=== PATIENT | male | born 1950 | race Caucasian/White ===

== ENCOUNTER 2017-10-07 12:29 | Emergency (ER) | payer BC, MEDICARE ==
[2017-10-07 12:53] VITALS: BP 148/73
--- NOTE | 2017-10-07 13:12 | EDM.PDOC ---
ED HPI GENERAL MEDICAL PROBLEM - General Chief Complaint: Neuro Symptoms/Deficits Stated Complaint: POSSIBLE STROKE Time Seen by Provider: 10/07/17 13:11 Source of Information: Reports: Patient, Family History Limitations: Reports: No Limitations - History of Present Illness INITIAL COMMENTS - FREE TEXT/NARRATIVE: pt was putting duck decoys up in the upper garge shelf. He had his head tipped way backward. He had both hands above his head. He developed a floppy hand marked weakness and he was not able to move the middle and ring finger of the hand. He did not have other symptoms. He had a stoke 1 year ago with speech symptoms only. Onset: Today, Other ( Pt was lifting an object above his head) Duration: Other ( The episode lasted 5 minutes. ) Location: Reports: Upper Extremity, Right Associated Symptoms: Reports: Other (pt developed marked weakness in the rt hand and was not able to move his ring and middle finger. ) - Related Data Allergies Allergy/AdvReac Type Severity Reaction Status Date / Time No Known Allergies Allergy Verified 04/17/16 11:46 Home Meds: Home Meds Fluticasone Propionate [Flovent HFA 220 MCG] 2 puff INH DAILY 04/17/16 [History] Clopidogrel Bisulfate [Clopidogrel] 1 tab PO DAILY 10/07/17 [History] Rosuvastatin Calcium [Rosuvastatin Calcium] 1 tab PO DAILY 10/07/17 [History] amLODIPine [Norvasc] 1 tab PO DAILY 10/07/17 [History] Past Medical History HEENT History: Reports: Impaired Vision Cardiovascular History: Reports: High Cholesterol, Hypertension Respiratory History: Reports: Asthma Gastrointestinal History: Reports: Irritable Bowel Syndrome Genitourinary History: Reports: None Musculoskeletal History: Reports: Fracture Neurological History: Reports: CVA Psychiatric History: Reports: Anxiety, Depression Endocrine/Metabolic History: Reports: None Hematologic History: Reports: None Immunologic History: Reports: None Oncologic (Cancer) History: Reports: None Dermatologic History: Reports: None - Past Surgical History Head Surgeries/Procedures: Reports: None Musculoskeletal Surgical History: Reports: Other (See Below) Social & Family History - Tobacco Use Smoking Status *Q: Never Smoker - Recreational Drug Use Recreational Drug Use: No ED ROS GENERAL - Review of Systems Review Of Systems: See Below Constitutional: Reports: No Symptoms HEENT: Reports: No Symptoms Respiratory: Reports: No Symptoms Cardiovascular: Reports: No Symptoms Endocrine: Reports: No Symptoms GI/Abdominal: Reports: No Symptoms : Reports: No Symptoms Skin: Reports: Other ( weakness in the rt hand. This developed when he was reaching overhead with a heavy object in his hands. ) ED EXAM, NEURO - Physical Exam Exam: See Below Text/Narrative:: pt developed a sudden episode of weakness in the rt hand rogelio he was putting duck decoys up on a high shelf. Exam Limited By: No Limitations General Appearance: Alert, Anxious, Other (pupils equal and reactive. ) Ears: Normal TMs Nose: Normal Inspection Throat/Mouth: Normal Inspection Head Exam: Atraumatic Neck: Normal Inspection, Other ( no evidence of carotid bruit) Respiratory/Chest: No Respiratory Distress Cardiovascular: Regular Rate, Rhythm GI/Abdominal: Soft, Non-Tender (Male) Exam: Deferred Rectal (Males) Exam: Deferred Neurological: Alert, Other ( no neuro symptoms. ) Back Exam: Normal Inspection Extremities: Other ( normal strength bilateral. ) Psychiatric: Normal Affect Course - Vital Signs Last Recorded V/S: Last Vital Signs Temp 36.7 C 10/07/17 12:51 Pulse 64 10/07/17 12:51 Resp 14 10/07/17 12:51 BP 148/73 H 10/07/17 12:51 Pulse Ox 96 10/07/17 12:51 - Orders/Labs/Meds Orders: Active Orders 24 hr Category Date Time Status EKG Documentation Completion [RC] ASDIRECTED Care 10/07/17 13:11 Active Ang Head [CT] Stat Exams 10/07/17 14:19 Taken Iopamidol [Isovue-370 (76%)] Med 10/07/17 14:30 Active 100 ml IV . DIRECTED Sodium Chloride 0.9% [Normal Saline] 100 ml Med 10/07/17 14:30 Active IV ASDIRECTED Sodium Chloride 0.9% [Saline Flush] Med 10/07/17 14:30 Active 10 ml FLUSH ASDIRECTED PRN EKG 12 Lead [EK] Routine Ther 10/07/17 13:11 Ordered Medication Orders Sodium Chloride (Normal Saline) 100 mls @ 4 mls/sec IV ASDIRECTED DESI Last Admin: 10/07/17 14:57 Dose: 4 mls/sec Iopamidol (Isovue-370 (76%)) 100 ml IV . DIRECTED DESI Last Admin: 10/07/17 14:57 Dose: 100 ml Sodium Chloride (Saline Flush) 10 ml FLUSH ASDIRECTED PRN PRN Reason: Keep Vein Open Last Admin: 10/07/17 14:57 Dose: 10 ml Labs: Laboratory Tests 10/07/17 10/07/17 Range/Units 13:11 13:11 WBC 7.8 (4.5-11.0) K/uL RBC 5.14 (4.30-5.90) M/uL Hgb 15.7 H (12.0-15.0) g/dL Hct 44.1 (40.0-54.0) % MCV 86 (80-98) fL MCH 31 (27-31) pg MCHC 36 (32-36) % Plt Count 274 (150-400) K/uL Neut % (Auto) 58 (36-66) % Lymph % (Auto) 27 (24-44) % Bee % (Auto) 11 H (2-6) % Eos % (Auto) 3 (2-4) % Baso % (Auto) 1 (0-1) % Sodium 141 (140-148) mmol/L Potassium 4.0 (3.6-5.2) mmol/L Chloride 105 (100-108) mmol/L Carbon Dioxide 29 (21-32) mmol/L Anion Gap 6.6 (5.0-14.0) mmol/L BUN 14 (7-18) mg/dL Creatinine 0.9 (0.8-1.3) mg/dL Est Cr Clr Drug Dosing 63.19 mL/min Estimated GFR (MDRD) > 60 (>60) Glucose 93 (74-106) mg/dL Calcium 9.0 (8.5-10.1) mg/dL Total Bilirubin 0.4 (0.2-1.0) mg/dL AST 28 (15-37) U/L ALT 45 (12-78) U/L Alkaline Phosphatase 64 (46-116) U/L Total Protein 6.8 (6.4-8.2) g/dL Albumin 3.8 (3.4-5.0) g/dL Globulin 3.0 (2.3-3.5) g/dL Albumin/Globulin Ratio 1.3 (1.2-2.2) Meds: Medications Generic Name Dose Route Start Last Admin Trade Name Deweyq PRN Reason Stop Dose Admin Sodium Chloride 100 mls @ 4 mls/sec 10/07/17 14:30 10/07/17 14:57 Normal Saline IV 4 mls/sec ASDIRECTED DESI Administration Iopamidol 100 ml 10/07/17 14:30 10/07/17 14:57 Isovue-370 (76%) IV 100 ml . DIRECTED DESI Administration Sodium Chloride 10 ml 10/07/17 14:30 10/07/17 14:57 Saline Flush FLUSH 10 ml ASDIRECTED PRN Administration Keep Vein Open - Re-Assessments/Exams Free Text/Narrative Re-Assessment/Exam: 10/07/17 16:04 cat scan of the head -- angio -- neg . No sign fo stenosis. Departure - Departure Time of Disposition: 15:59 Disposition: Home, Self-Care 01 Condition: Fair Clinical Impression: Nerve compression, Weakness of right hand - Discharge Information Referrals: Fernandez Londono MD [Primary Care Provider] - Forms: ED Department Discharge Care Plan Goals: rtc if further symptoms, cont same meds. - My Orders Last 24 Hours: My Active Orders 10/07/17 13:11 EKG Documentation Completion [RC] ASDIRECTED EKG 12 Lead [EK] Routine 10/07/17 14:19 Ang Head [CT] Stat 10/07/17 14:30 Iopamidol [Isovue-370 (76%)] 100 ml IV . DIRECTED Sodium Chloride 0.9% [Normal Saline] 100 ml IV ASDIRECTED Sodium Chloride 0.9% [Saline Flush] 10 ml FLUSH ASDIRECTED PRN - Assessment/Plan Last 24 Hours: My Active Orders 10/07/17 13:11 EKG Documentation Completion [RC] ASDIRECTED EKG 12 Lead [EK] Routine 10/07/17 14:19 Ang Head [CT] Stat 10/07/17 14:30 Iopamidol [Isovue-370 (76%)] 100 ml IV . DIRECTED Sodium Chloride 0.9% [Normal Saline] 100 ml IV ASDIRECTED Sodium Chloride 0.9% [Saline Flush] 10 ml FLUSH ASDIRECTED PRN
[2017-10-07] MEDS ORDERED: Sodium Chloride 0.9% 10 ML Syringe FLUSH PRN (14:30)
[2017-10-07] MEDS ORDERED: Iopamidol 755 Mg/ML 100 ML Bottle IV SCH (14:30)
[2017-10-07] MEDS ORDERED: Sodium Chloride 0.9% 100 ML IV SCH (14:30)
== END 2017-10-07 16:31 | disposition home or self-care (01) ==
LOC: JP.ED 12:29
DX: G58.9 Mononeuropathy, unspecified (principal); R29.898 Other symptoms and signs involving the musculoskeletal system; I10 Essential (primary) hypertension; E78.00 Pure hypercholesterolemia, unspecified; Z79.899 Other long term (current) drug therapy
CPT/HCPCS: 36415; 70496; 80053; 85025; 93005; 99285; J7030; J7050; Q9967

== ENCOUNTER 2021-05-25 06:54 | Day surgery (SDC) | payer MEDICARE, BC ==
[2021-05-25] MEDS ORDERED: Sodium Chloride 0.9% 1,000 ML IV SCH (07:30)
[2021-05-25] MEDS ORDERED: Propofol 200 MG/20 ML SDV ONE ×2 (07:35→08:38)
[2021-05-25] MEDS ORDERED: fentaNYL 100 MCG/2 ML SDV ONE (07:35)
[2021-05-25] MEDS ORDERED: Midazolam 1 MG/ML 2 ML SDV ONE (07:36)
[2021-05-25 11:30] VITALS: BP 147/72; PULSE 67
--- NOTE | 2021-05-25 14:18 | OR ---
DATE OF PROCEDURE: 05/25/2021 SURGEON: Eze Kelsey MD PROCEDURES: 1. Esophagogastroduodenoscopy. 2. Colonoscopy. FINDINGS: 1. Approximately 5 mm gastric polyp, completely removed using cold biopsy forceps. 2. [place]-like tongue approximately 1.5 cm from the GE junction consistent with Monson's esophagus versus GERD (biopsied with cold biopsy forceps in conjunction with all 4 quadrants). 3. Hiatal hernia approximately 5 cm in size. 4. Ascending colon polyp, approximately 5 mm, completely removed using hot snare wire device. 5. Transverse colon polyp, approximately 5 mm, completely removed using cold biopsy forceps. 6. Diverticulosis, mild, limited to sigmoid colon without evidence of diverticulitis or bleeding. COMPLICATIONS: None. PUTTY MAKER: None. PREOPERATIVE DIAGNOSES: 1. History of Monson's esophagus. 2. Screening colonoscopy. POSTOPERATIVE DIAGNOSES: 1. History of Monson's esophagus. 2. Screening colonoscopy. RISKS: Risks, benefits, alternatives, and limitations including but not limited to infection, bleeding, perforation, and false positives and false negatives were explained to the patient who wished to proceed. Of note, I did instruct the patient even if the pathological biopsies do not show Monson's esophagus, recommend repeat EGD in 2 years. PROCEDURE IN DETAIL: The patient was placed in left lateral decubitus position. The EGD scope was introduced and advanced atraumatically into the second part of the duodenum. No evidence of duodenitis or ulceration. Within the stomach itself, there was no ulceration. The patient had a small gastric polyp, which was completely removed using cold biopsy forceps. The GE junction showed a hiatal hernia approximately 5 cm in size. At the GE junction itself, there was an approximately 1.5 cm to 2 cm tongue of salmon- colored tissue. This was biopsied using cold biopsy forceps. This was biopsied in conjunction with all other quadrants. The esophagus was inspected without abnormality. The air was removed from stomach. Digital rectal exam was performed next. Scope was introduced and advanced atraumatically to the appendiceal orifice. Photo was taken of this. The scope was brought back to the ascending, transverse, and descending colon and retroflexed. In the ascending colon, the polyp was identified and completely removed using hot snare wire device. Within the transverse colon, a small polyp was identified and completely removed using cold biopsy forceps. The diverticulosis was described as mild, limited to sigmoid colon without evidence of diverticulitis or bleeding. No abnormalities on retroflexion. Prep was acceptable, approximately 90% of luminal surface could be seen. Greater than 8 minutes was spent removing the scope. The patient tolerated the procedure well. Eze Kelsey MD /[id number]
== END 2021-05-25 11:35 | disposition home or self-care (01) ==
LOC: JP.SDS 06:54
PROVIDERS: ATTEND Surgery
DX: Z12.11 Encounter for screening for malignant neoplasm of colon (principal); D12.3 Benign neoplasm of transverse colon; K31.7 Polyp of stomach and duodenum; K44.9 Diaphragmatic hernia without obstruction or gangrene; K57.30 Diverticulosis of large intestine without perforation or abscess without bleeding; K21.9 Gastro-esophageal reflux disease without esophagitis; J45.909 Unspecified asthma, uncomplicated; Z88.8 Allergy status to other drugs, medicaments and biological substances
CPT/HCPCS: 43239; 45380; 45385; J2250; J2704; J3010; J7030

== ENCOUNTER 2023-08-17 05:37 | Emergency (ER) | payer MEDICARE, BC ==
[2023-08-17 05:51] VITALS: BP 146/55; PULSE 59
[2023-08-17 06:04] LABS: BASOPHILS ABSOLUTE AUTO 0.09 K/uL (0.00-0.10); BASOPHILS PERCENT AUTO 0.8 % (0.1-1.3); EOSINOPHILS ABSOLUTE AUTO 0.33 K/uL (0.00-0.40); EOSINOPHILS PERCENT AUTO 2.8 % (0.0-5.4); HEMATOCRIT 45.1 % (38.4-49.7); HEMOGLOBIN 15.6 g/dL (12.9-16.9); IMMATURE GRAN ABSOLUTE AUTO 0.08 K/uL (0.00-0.23); IMMATURE GRAN PERCENT AUTO 0.7 % (0.0-0.7); MEAN CORPUSCULAR HEMOGLOBIN 30.6 pg (31.6-35.5); MEAN CORPUSCULAR HGB CONC 34.6 g/dL (31.6-35.5); MEAN CORPUSCULAR VOLUME 88.4 fL (81.4-99.0); MONOCYTES ABSOLUTE AUTO 0.86 K/uL (0.20-0.90); MONOCYTES PERCENT AUTO 7.3 % (3.3-12.6); NEUTROPHILS PERCENT AUTO 61.4 % (40.0-78.1); PLATELET COUNT,PLT 280 K/uL (130-375); WHITE BLOOD CELL COUNT,WBC 11.9 K/uL (3.2-11.0)
[2023-08-17 06:28] LABS: ANION GAP 11.4 mmol/L (5.0-14.0); CALCIUM 9.1 mg/dL (8.5-10.1); CREATININE 0.9 mg/dL (0.8-1.3); EST CRCL DRUG DOSING (CG) 58.98 mL/min; POTASSIUM,K 3.4 mmol/L (3.6-5.2); TROPONIN I HIGH SENSITIVITY 10.2 pg/mL (<=60.3)
[2023-08-17 08:21] LABS: T4 FREE 1.23 ng/dL (0.76-1.46); TSH ULTRASENSITIVE 1.255 uIU/mL (0.358-3.740)
== END 2023-08-17 08:15 | disposition home or self-care (01) ==
LOC: JP.ED 05:37
DX: R07.89 Other chest pain (principal); I10 Essential (primary) hypertension; E78.00 Pure hypercholesterolemia, unspecified; J45.909 Unspecified asthma, uncomplicated; K21.9 Gastro-esophageal reflux disease without esophagitis; Z79.82 Long term (current) use of aspirin; Z79.02 Long term (current) use of antithrombotics/antiplatelets; Z79.899 Other long term (current) drug therapy; Z88.8 Allergy status to other drugs, medicaments and biological substances
CPT/HCPCS: 36415; 80048; 84439; 84443; 84484; 85025; 93005; 93010; 99283; 99284

== ENCOUNTER → 2025-10-13 | Day surgery (SDC) | payer MEDICARE, BC ==
[~2025-10-13] MED LIST: Propofol 200 MG/20 ML SDV ONE; fentaNYL 50 MCG/ML SDV ONE
[2025-10-13] MEDS: Lactated Ringers 1,000 ML IV SCH (10:10)
[2025-10-13 13:39] VITALS: BP 142/87; PULSE 66
== END ==
LOC: JP.SDS 09:39
PROVIDERS: ATTEND Surgery
DX: K21.9 Gastro-esophageal reflux disease without esophagitis (principal); K22.70 Barrett's esophagus without dysplasia; K31.89 Other diseases of stomach and duodenum; K44.9 Diaphragmatic hernia without obstruction or gangrene; E78.00 Pure hypercholesterolemia, unspecified; I10 Essential (primary) hypertension; F41.9 Anxiety disorder, unspecified; F32.A Depression, unspecified; Z79.01 Long term (current) use of anticoagulants; Z88.5 Allergy status to narcotic agent; Z79.899 Other long term (current) drug therapy
CPT/HCPCS: 00731; 43239; J2704; J3010; J7120